=== PATIENT | male | born 1950 | race Caucasian/White ===

== ENCOUNTER → 2016-05-22 | Day surgery (SDC) | payer MEDICARE, MEDICAID, OTHER ==
[~2016-05-22] MED LIST: ACETAMINOPHEN/HYDROcodone 325 MG/5 MG TAB ONE; ALBU8I INH; BACT800T5 PO; BUPIVACAINE/EPINEPHRINE 0.25% 50 ML VIAL ONE; BUPIVACAINE/EPINEPHRINE 0.5% PF 30 ML VIAL ONE; CEPH-460 PO; DILA8TAB4 PO; LACTATED RINGER'S 1000 ML INJ 1,000 ML ONE; LEXA20TA PO; MIDAZOLAM HCL 2 MG/2 ML VIAL ONE; MS C60TA4 PO; NEOMYCIN/POLYMYXIN/BACITRACIN OINT 15 GM TUBE ONE; OMEP20CA5 PO; ONDANSETRON HCL 4 MG/2 ML VIAL IV PUSH ONE; PROPOFOL 200 MG/20 ML AMP IV ONE; TIZA2TAB PO; ZITH250T PO
--- NOTE | 2016-05-22 11:16 | TN ---
cc: OSMAN EAGLE M.D. 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 PROCEDURE PERFORMED Wide local excision residual basal cell carcinoma, 6 x 2 cm. SURGEON Osman Eagle ASSISTED LIVING HOUSEKEEPER Kelsy Ramos, MS III ANESTHESIA General LMA. COMPLICATIONS None. INDICATION FOR PROCEDURE Mr. Cain is pleasant 65-year-old gentleman who had a concerning skin lesion on his left forearm. He underwent excision by Dr. Stephens in her office. He was found to have multiple positive deep margins. He was referred for wide and deep surgical excision. The risks and benefits of excision was discussed with him in the office and he was agreeable. DETAILS OF PROCEDURE The patient was identified, brought to the operating room and placed supine on the operating table. After adequate general anesthesia was achieved with LMA, the left forearm was prepped and draped in a standard surgical fashion. The previous incision had been marked in the preoperative holding area. 0.25% Marcaine was injected in the skin and subcutaneous tissue around the previous incision. An elliptical incision was drawn out on the forearm that measured 2 x 6 cm. The elliptical incision was then made with a knife. The subcutaneous tissue was dissected down to the fascia of the forearm. The subcutaneous fat was then meticulously dissected off of the fascia of the forearm preserving the neurovascular structures as well as the tendons. The specimen was excised and sent to pathology for analysis. A short stitch was placed superior, a long stitch placed lateral dorsal. The wound was then irrigated with normal saline solution. Subcutaneous skin flaps were then raised proximally and distally in order to achieve primary closure. Primary closure was accomplished using multiple layers. First a 3-0 Vicryl was used for the deep tissue. A 4-0 Vicryl was used for the skin and then a 4-0 nylon used to supplement the closure in the middle portion of the incision where it was a little tight. The wound was then covered with antibiotic ointment and sterile dressing. The patient tolerated the procedure well, was awakened and brought to Recovery in stable condition. MD DONTE Wolfe/SANDRA /10:51 AM /11:10 AM
== END | disposition home or self-care (01) ==
LOC: ESDC 09:00
PROVIDERS: ATTEND Surgery Trauma Surgery
DX: C44.619 Basal cell carcinoma of skin of left upper limb, including shoulder (principal)
CPT/HCPCS: 00400; 11606; 12032; 88305; J2250; J2405; J3010; J7120

== ENCOUNTER 2016-06-16 17:54 | Emergency (ER) | payer MEDICARE, MEDICAID ==
[~2016-06-16] VITALS: Ht 193 cm; Wt 88.8 kg
[~2016-06-16 17:54] MED LIST changes: -ACETAMINOPHEN/HYDROcodone 325 MG/5 MG TAB ONE; -BACT800T5 PO; -BUPIVACAINE/EPINEPHRINE 0.25% 50 ML VIAL ONE; -BUPIVACAINE/EPINEPHRINE 0.5% PF 30 ML VIAL ONE; -CEPH-460 PO; -LACTATED RINGER'S 1000 ML INJ 1,000 ML ONE; -MIDAZOLAM HCL 2 MG/2 ML VIAL ONE; -NEOMYCIN/POLYMYXIN/BACITRACIN OINT 15 GM TUBE ONE; -ONDANSETRON HCL 4 MG/2 ML VIAL IV PUSH ONE; -PROPOFOL 200 MG/20 ML AMP IV ONE
[2016-06-16 17:56] VITALS: BP 127/79; PULSE 87; RESP 15; TEMP 97.8; O2SAT 100
--- NOTE | 2016-06-16 18:06 | PD ---
HPI Chief Complaint: Skin Problem Time Seen by Provider: 18:02 Travel History International Travel<30 days: No Contact w/Intl Traveler<30days: No Traveled to known affect area: No History of Present Illness HPI 65-year-old male presents for evaluation of an area of skin redness on the lateral right thigh. Symptoms started 3-4 days ago. He says that he has a "MRSA flare up." Symptoms are mild, aching aggravated by palpation. No fevers or chills. No drainage. Denies any skin trauma. No other complaints. PFSH Past Medical History Arthritis: Yes Anxiety: Yes Cancer: Yes (SKIN) Cardiovascular Problems: No Diminished Hearing: No Endocrine: No Gastrointestinal Disorders: Yes GERD: No Genitourinary: No Headaches: Yes Hepatitis: No Hiatal Hernia: Yes Immune Disorder: No Inguinal Hernia: Yes Implanted Vascular Access Dvce: Yes Kidney Stones: No Musculoskeletal: No Neurologic: Yes (2004, FX NECK, VERTEBRAE) Psychiatric: No Reproductive: No Respiratory: Yes Renal Failure: No Seizures: No Sleep Apnea: Yes Ulcer: No Past Surgical History Abdominal Surgery: No Appendectomy: No Body Medical Devices: BULLET FRAGMENTS Cardiac Surgery: No Cholecystectomy: No Ear Surgery: No Endocrine Surgery: No Eye Surgery: No Genitourinary Surgery: No Gynecologic Surgery: No Oral Surgery: No Thoracic Surgery: No Social History Alcohol Use: No Tobacco Use: Yes (1/2 PACK DAY ) Substance Use: No Allergies-Medications (Allergen,Severity, Reaction): Coded Allergies: No Known Allergies (Verified , 07/04/15) Reported Meds & Prescriptions Reported Meds & Active Scripts Active Keflex (Cephalexin) 500 Mg Cap 500 Mg PO Q8H Bactrim DS (Sulfamethoxazole-Trimethoprim) 800-160 Mg Tab 1 Tab PO BID Zithromax Z-Omar (Azithromycin) 250 Mg Tab 250 Mg PO DIRECTED 500 MG (2 TABLETS) PO ON DAY 1, THEN 250 MG (1 TABLET) PO ON DAYS 2 TO 5. Ventolin Hfa (Albuterol Sulfate) 8 Gm Aero 1 Puff INH Q4H PRN * SHAKE WELL BEFORE USE * Prilosec 20 mg (Omeprazole) 20 Mg Capcr 20 Mg PO DAILY Reported Zanaflex 2 mg (Tizanidine HCl) 2 Mg Tab 1 Tab PO DAILY Lexapro (Escitalopram Oxalate) 20 Mg Tab 20 Mg PO HS Ms Contin (Morphine Sulfate) 60 Mg Tab 60 Mg PO BID Dilaudid 8 mg (Hydromorphone HCl) 8 Mg Tab 8 Mg PO TID Review of Systems General / Constitutional: No: Fever, Chills Musculoskeletal: No: Limited ROM, Pain Skin: Positive Other (positive for redness, tenderness. Denies drainage.) Physical Exam Narrative GENERAL: Well-developed well-nourished male in no acute distress SKIN: Warm and dry. Labs centimeter area of mild erythema to the lateral right thigh, central induration and excoriation without fluctuance or drainage. HEAD: Atraumatic. Normocephalic. EYES: Pupils equal and round. No scleral icterus. No injection or drainage. CARDIOVASCULAR: Regular rate and rhythm. No murmur appreciated. RESPIRATORY: No accessory muscle use. Clear to auscultation. Breath sounds equal bilaterally. GASTROINTESTINAL: Abdomen soft, non-tender, nondistended. Hepatic and splenic margins not palpable. MUSCULOSKELETAL: No obvious deformities. Skin as noted above. Data Data Last Documented VS Vital Signs Date Time Temp Pulse Resp B/P Pulse Ox O2 Delivery O2 Flow Rate FiO2 06/16/16 18:10 14 06/16/16 17:56 97.8 87 127/79 100 Orders Sulfamet-Trimeth Ds 800-160 Mg (Bactrim (06/16/16 18:15) Cephalexin (Keflex) (06/16/16 18:15) [facility] Medical Decision Making Medical Screen Exam Complete: Yes Emergency Medical Condition: Yes Medical Record Reviewed: Yes Differential Diagnosis Cellulitis, abscess, erysipelas, necrotizing fasciitis Narrative Course Examination reveals mild cellulitic changes the lateral right thigh. The patient will be treated as an outpatient with Bactrim, Keflex. Discussed signs and symptoms that would warrant return to the emergency room. Diagnosis Primary Impression: Cellulitis of right leg Additional Instructions: Medication as prescribed. Warm compresses to the affected area several times a day 10 minutes at a time. Return for evidence of worsening infection. Med/Other Pt SpecificInfo: Prescription(s) given Scripts Cephalexin (Keflex)500 Mg Fre469 Mg PO Q8H #30 CAP Ref 0 Prov:Marcus Shay MD 06/16/16 Sulfamethoxazole-Trimethoprim (Bactrim DS)800-160 Mg Tab1 Tab PO BID #20 TAB Ref 0 Prov:Marcus Shay MD 06/16/16 Disposition: 01 DISCHARGE HOME Condition: Stable Rodger Merchant June 16, 2016 18:06
[2016-06-16] MEDS ORDERED: BACT800T5 PO (18:12)
[2016-06-16] MEDS ORDERED: CEPH-460 PO (18:12)
[2016-06-16] MEDS ORDERED: SULFAMETHOXAZOLE-TRIMETHOPRIM DS 800-160 MG TAB PO ONE (18:15)
[2016-06-16] MEDS ORDERED: CEPHALEXIN MONOHYDRATE 500 MG CAP PO ONE (18:15)
== END 2016-06-16 18:27 | disposition home or self-care (01) ==
LOC: NEPD 17:54
DX: L03.115 Cellulitis of right lower limb (principal)
CPT/HCPCS: 99283